=== PATIENT | male | born 1930 | race Caucasian/White ===

== ENCOUNTER → 2016-07-31 | Outpatient (CLI) | payer OTHER ==
[~2016-07-31] MED LIST: ASPEC81 PO; BNC20 PO; METO25TA3 PO; OPTIRAY 300 IV PRN; PRAV20TA PO
--- NOTE | 2016-07-31 14:38 | DIAGNOSTIC IMAGING REPORT ---
IVP W/OR W/O TOMOGRAMS CLINICAL HISTORY: Bladder neoplasm. Follow-up. COMPARISON STUDY: IVP 05/31/2014. FINDINGS: Olive Grader images demonstrate a few pelvic phleboliths and levoscoliosis of the lumbar spine. No renal calculi. There is a surgical clip within the left side the abdomen. Following the intravenous administration of contrast there is prompt and symmetric perfusion of the kidneys. The kidneys appear to be normal in size. No hydronephrosis. No suspicious filling defects identified within the urinary system. No significant post void residual. IMPRESSION: No hydronephrosis. No suspicious filling defects identified within the urinary system. Electronically signed by: Milo Houston M.D. 07/31/2016 2:37 PM Dictated Date/Time: 07/31/2016 2:33 PM
== END | disposition home or self-care (01) ==
LOC: C.RAD 12:15
PROVIDERS: ATTEND Urology
DX: D49.4 Neoplasm of unspecified behavior of bladder (principal)